=== PATIENT | female | born 2000 | race African-American/Black ===

== ENCOUNTER 2020-06-07 12:22 | Emergency (ER) | payer BC, SELFPAY ==
[2020-06-07 12:34] VITALS: BP 109/60; PULSE 80; RESP 12; TEMP 36.6; O2SAT 98
[2020-06-07] MEDS: ONDANSETRON HCL ODT 4 MG TABLET PO (13:16)
[2020-06-07] MEDS: predniSONE 20 MG TABLET 40 MG PO (13:16)
--- NOTE | 2020-06-07 13:26 | PC.NURSE ---
In to discharged patient and she refuses to leave without an x-ray. Got her mother and phone and insisted patient get x-rayed. States she stepped on a rock friday and injured her foot. Informed mother that child informed us there was no injury at time of triage.
--- NOTE | 2020-06-07 13:30 | ED.PEDHENT ---
HPI - Pediatric HENT General Chief complaint: Nausea/Vomiting/Diarrhea Stated complaint: vomiting/+ strep throat Source: patient and RN notes reviewed Limitations: no limitations History of Present Illness HPI Narrative: The patient, non-smoker/nondrinker previous healthy college student, presents with sore throat & nausea. Patient states 2 to 3 days ago she was treated with Zithromax for proven strep pharyngitis on rapid testing [no Covid test as she has weekly sputum screening at college;No test as she is on control without cycles, and had negative test a couple days ago.]. She complains of unchanged sore throat, nausea vomiting x1 to 2/day. No fever, hoarseness, trismus, abdominal pain, diarrhea-but she has had some loose stools. Symptoms are mild worse with eating; and she is unsure if it is related to antibiotic dosing. Related Data Home Medications Medication Instructions Recorded Confirmed Zithromax Z-Faheem 06/07/20 Allergies Allergy/AdvReac Type Severity Reaction Status Date / Time No Known Allergies Allergy Verified 06/07/20 12:29 Pediatric Review of Systems : Review of Systems: General/Constitutional: No weight loss,fever Eyes: N0: Redness,discharge Ears/Nose/Throat: No: Epistaxis,ear discharge Respiratory: Denies: Hemoptysis Gastrointestinal: REPORTS vomiting, no Bleeding-rectal Skin: No Lumps, eruption Neurologic: No Focal Weakness,Sz Hematologic: Denies: Petechiae/Purpura Psychiatric: No: Suicida ideationl All Other Systems: Reviewed and Negative PMFSH Comments At time of signature, agree with nursing past medical, surgical, social and family history. There is no relevant family history pertinent to the presenting complaint Pediatric Exam Narrative: Physical exam: General Appearance: Well appearing, Well nourished, Conjunctiva clear Ears: Auditory canal normal, TM normal Nose: Rhinorrhea, Mucousal erythema Mouth/Throat: MM moist, Uvula midline, Pharyngeal erythema Neck: Supple, No adenopathy Respiratory: No respiratory distress, Breath sounds equal, Clear to auscultation GI: Soft nontender positive bowel sounds, no surgical signs Cardiovascular: RRR, No JVD Musculoskeletal: Non tender, Normal strength Skin: Warm, Dry Neurological: A&O x3, CN II-XII intact Psychiatric: Normal mood, Normal affect Course Vital Signs Vital signs: Vital Signs Temperature 97.8 F 06/07/20 12:34 Pulse Rate 80 06/07/20 12:34 Respiratory Rate 12 06/07/20 12:34 Blood Pressure 109/60 06/07/20 12:34 Pulse Oximetry 98 06/07/20 12:34 Temperature 97.8 F 06/07/20 12:34 Pulse Rate 80 06/07/20 12:34 Respiratory Rate 12 06/07/20 12:34 Blood Pressure 109/60 06/07/20 12:34 Pulse Oximetry 98 06/07/20 12:34 Medical Decision Making Vital Signs Vital Signs: Vital Signs Temperature 97.8 F 06/07/20 12:34 Pulse Rate 80 06/07/20 12:34 Respiratory Rate 12 06/07/20 12:34 Blood Pressure 109/60 06/07/20 12:34 Pulse Oximetry 98 06/07/20 12:34 Temperature 97.8 F 06/07/20 12:34 Pulse Rate 80 06/07/20 12:34 Respiratory Rate 12 06/07/20 12:34 Blood Pressure 109/60 06/07/20 12:34 Pulse Oximetry 98 06/07/20 12:34 Lab Data Labs: Lab Results 06/07/20 Range/Units 12:53 POC SARS CoV-2 Ag Negative (Negative) Discharge Plan Discharge Clinical Impression: History of strep pharyngitis Vomiting Qualifiers: Vomiting type: unspecified Vomiting Intractability: unspecified Nausea presence: unspecified Qualified Code(s): R11.10 - Vomiting, unspecified Patient Disposition: Home, Self-Care Condition: Improved Instructions: Antibiotic Form, Strep Throat (ED) Prescriptions: New Lidocaine Viscous 2 % solution 5 ml MUCOUS MEM QID PRN (Reason: pain) Qty: 100 RF: 0 amoxicillin 875 mg tablet 875 mg PO Q12H Qty: 20 RF: 0 ondansetron HCl [Zofran] 4 mg tablet 4 mg PO DAILY 1 Days
== END 2020-06-07 13:38 | disposition home or self-care (01) ==
PROVIDERS: Emergency Provider Emergency Medicine
DX: J02.0 Streptococcal pharyngitis (principal); R11.10 Vomiting, unspecified; Z20.822 Contact with and (suspected) exposure to COVID-19
CPT/HCPCS: 87426; 99213; A9270; C9803; G0463; J7512